=== PATIENT | female | born 1980 | race American Indian/Alaskan Native ===

== ENCOUNTER 2019-05-07 09:35 | Outpatient (CLI) | payer MEDICAID ==
--- NOTE | 2019-05-07 11:36 | Mammography Report ---
BILATERAL DIGITAL DIAGNOSTIC MAMMOGRAM WITH CAD RIGHT BREAST ULTRASOUND INDICATION: Right palpable breast lump. The patient states that the palpable lump in the right breast comes and goes. TECHNIQUE: Digital bilateral mammographic imaging was performed. This examination was interpreted w ith the benefit of Computer-Aided Detection (CAD) analysis. COMPARISON: None. FINDINGS: Breast Density: The breasts are almost entirely fatty. There is no evidence of dominant mass, suspicious calcifications or architectural distortion in eithe r breast. No mammographic finding at a right outer palpable marker. Ultrasound Findings: Targeted ultrasound evaluation was performed of the area of interest. A 4 x 5 x 4 mm complex solid mass is identified at 7:00 8 cm from the nipple. It is predominantly hyperechoic with a hypoechoic center and it is near the skin. IMPRESSION: A benign 5 mm mass of the right breast at 7:00 8 cm from the nipple. Sonographic characte ristics suggest benign fat necrosis. BI-RADS Category 2: Benign. Unless otherwise clinically indicated, recommend patient outine screening mammography at age 40. A "normal" or negative report should not discourage follow up or biopsy of a clinically significant f inding. A written summary of these findings will be mailed to the patient. The patient will be entered into a mammography reporting system which will generate a reminder letter for the patient's next appointmen t at the appropriate interval. FURTHER INFORMATION: According to the [employer], yearly mammograms are recommend ed starting at age 40 and continuing as long as a woman is in good health. Breast MRI is recommended for women with an approximately 20-25% or greater lifetime risk of breast cancer, including women wi th a strong family history of breast or ovarian cancer and women who have been treated for Hodgkin's disease. Signer Name: Luis Eduardo Browne MD Signed: 05/07/2019 11:32 AM Workstation Name: [id number]
== END 2019-05-07 09:36 | disposition home or self-care (01) ==
LOC: MAMMO 09:35
PROVIDERS: ATTEND Advanced Practice Midwife
DX: C50.511 Malignant neoplasm of lower-outer quadrant of right female breast (principal)
CPT/HCPCS: 77066

== ENCOUNTER 2022-06-14 09:21 | Outpatient (CLI) | payer OTHER ==
--- NOTE | 2022-06-16 08:12 | Mammography Report ---
DIGITAL SCREENING MAMMOGRAM WITH TOMOSYNTHESIS WITH CAD, 06/14/2022 CLINICAL INFORMATION / INDICATION: Routine Screening Mammography. TECHNIQUE: Digital bilateral 2D and 3D mammography with tomosynthesis was obtained in the craniocaud al and mediolateral oblique projections. Computer-Aided Detection (CAD) analysis was used for interp retation of this study. COMPARISON: May 07, 2019 FINDINGS: Breast Density: There are scattered areas of fibroglandular density. No dominant mass, suspicious calcifications, or architectural distortion in either breast. IMPRESSION: No mammographic evidence of malignancy. Follow up recommendation: Routine yearly screening mammogram. BI-RADS Category 1: NEGATIVE A "normal" or negative report should not discourage follow up or biopsy of a clinically significant f inding. A written summary of these findings will be mailed to the patient. The patient will be entered into a mammography reporting system which will generate a reminder letter for the patient's next appointmen t at the appropriate interval. The [employer] recommends yearly mammograms starting at age 40 and continuing as l kaushik as a woman is in good health. Breast MRI is recommended for women with an approximate 20-25% or greater lifetime risk of breast cancer, including women with a strong family history of breast or ova pietro cancer or who have been treated for Hodgkin's disease. Signer Name: Rob Lorenzo DO Signed: 06/16/2022 8:08 AM Workstation Name: [id number]
== END 2022-06-14 09:22 | disposition home or self-care (01) ==
LOC: SPVWC 09:21
PROVIDERS: ATTEND Advanced Practice Midwife
DX: Z12.31 Encounter for screening mammogram for malignant neoplasm of breast (principal)
CPT/HCPCS: 77063; 77067